=== PATIENT | female | born 1995 | race African-American/Black ===

== ENCOUNTER 2019-06-18 17:40 | Emergency (ER) | payer OTHER, BC, MEDICAID ==
[~2019-06-18] VITALS: Ht 162.5 cm; Wt 59.9 kg
[2019-06-18] MEDS ORDERED: ROBAXIN500 M1 PO (20:20)
[2019-06-18] MEDS ORDERED: IBUPROFEN600 MG PO (20:20)
== END 2019-06-18 20:27 | disposition home or self-care (01) ==
LOC: ED 17:40
DX: S52.612A Displaced fracture of left ulna styloid process, initial encounter for closed fracture (principal); R07.89 Other chest pain; M54.6 Pain in thoracic spine; M54.2 Cervicalgia; Z91.048 Other nonmedicinal substance allergy status; V89.2XXA Person injured in unspecified motor-vehicle accident, traffic, initial encounter; Y93.I9 Activity, other involving external motion; Y92.488 Other paved roadways as the place of occurrence of the external cause; Y99.8 Other external cause status